=== PATIENT | female | born 1955 | race Caucasian/White ===

== ENCOUNTER 2017-08-14 08:46 | Day surgery (SDC) | payer BC ==
[2017-08-14 09:29] VITALS: BMI 27.4
[2017-08-14] MEDS ORDERED: Lactated Ringer's 500 ML IV ONE (09:32)
[2017-08-14 09:48] VITALS: O2SAT 100
[2017-08-14] MEDS ORDERED: Lidocaine 2% MPF (5 ml) Inj ONE (10:13)
[2017-08-14] MEDS ORDERED: Propofol 10 mg/ml Inj (20 ML) ONE (10:13)
[2017-08-14 10:31] VITALS: TEMP 97
[2017-08-14 10:51] VITALS: BP 130/68; PULSE 60; RESP 14
== END 2017-08-14 11:00 | disposition home or self-care (01) ==
LOC: H.ENDO 08:46
PROVIDERS: ATTEND Internal Medicine Gastroenterology
DX: K29.50 Unspecified chronic gastritis without bleeding (principal); R10.9 Unspecified abdominal pain; E11.9 Type 2 diabetes mellitus without complications; E78.5 Hyperlipidemia, unspecified; I10 Essential (primary) hypertension
CPT/HCPCS: 43239; 88305; J2704; J7120